=== PATIENT | male | born 1965 | race Caucasian/White ===

== ENCOUNTER 2022-02-04 11:00 | Outpatient (CLI) | payer OTHER, SELFPAY ==
[2022-02-04 19:04] LABS: PSA Screen* 0.37 ng/mL (0.10-4.00)
== END 2022-02-04 11:01 | disposition home or self-care (01) ==
LOC: LONREF 11:03
PROVIDERS: PCP Family Medicine; Visit Provider Family Medicine
DX: Z12.5 Encounter for screening for malignant neoplasm of prostate (principal)
CPT/HCPCS: 84153

== ENCOUNTER 2023-08-03 08:19 | Outpatient (CLI) | payer OTHER, SELFPAY | END 2023-08-03 08:20 | disposition home or self-care (01) | LOC: LKVREF 08:21 | PROVIDERS: PCP Family Medicine; Visit Provider Family Medicine | DX: Z12.5 Encounter for screening for malignant neoplasm of prostate (principal); Z80.42 Family history of malignant neoplasm of prostate | CPT/HCPCS: G0103 ==

== ENCOUNTER 2024-08-22 08:23 | Outpatient (CLI) | payer OTHER, SELFPAY | END 2024-08-22 08:24 | disposition home or self-care (01) | LOC: LKVREF 08:26 | PROVIDERS: PCP Family Medicine; Visit Provider Family Medicine | DX: Z12.5 Encounter for screening for malignant neoplasm of prostate (principal) | CPT/HCPCS: G0103 ==

== ENCOUNTER 2024-09-25 15:48 | Outpatient (CLI) | payer OTHER, SELFPAY | END 2024-09-25 15:49 | disposition home or self-care (01) | PROVIDERS: PCP Family Medicine; Visit Provider Family Medicine | DX: M25.561 Pain in right knee (principal); Z11.8 Encounter for screening for other infectious and parasitic diseases | CPT/HCPCS: 84550; 86200; 86431; 86618 ==